=== PATIENT | male | born 1970 | race Two or more races ===

== ENCOUNTER 2024-06-19 10:56 | Outpatient (CLI) | payer OTHER | END 2024-06-19 11:10 | disposition home or self-care (01) | LOC: RAD 10:56 | PROVIDERS: ATTEND Orthopaedic Surgery Adult Reconstructive Orthopaedic Surgery | DX: I11.9 Hypertensive heart disease without heart failure (principal) ==

== ENCOUNTER 2025-04-22 09:06 | Emergency (ER) | payer OTHER ==
[~2025-04-22] VITALS: Ht 177.8 cm; Wt 79.8 kg
[2025-04-22] MEDS ORDERED: ACID REDUCER20 M1 (10:05)
[2025-04-22] MEDS ORDERED: ATACAND32 MG (10:05)
[2025-04-22] MEDS ORDERED: TERAZOSIN HCL5 MG PO (10:05)
[2025-04-22] MEDS ORDERED: PEPCID AC20 MG (10:06)
[2025-04-22] MEDS ORDERED: SYMBICORT 16010.2 GM (10:06)
[2025-04-22] MEDS ORDERED: REPATHA SU140 MG/1 M (10:06)
[2025-04-22] MEDS ORDERED: BUTALB/ACETAMINOPHEN/CAFFEINE 1 TAB TABLET PO ONE (10:30)
[2025-04-22] MEDS ORDERED: ONDANSETRON 4 MG TAB.RAPDIS PO ONE (10:30)
[2025-04-22] MEDS ORDERED: BUTALBIT-ACETA1 EACH PO (11:11)
[2025-04-22] MEDS ORDERED: ZOFRAN8 MG PO (11:11)
== END 2025-04-22 11:16 | disposition home or self-care (01) ==
LOC: ER 09:06
DX: R51.9 Headache, unspecified (principal); R11.10 Vomiting, unspecified; J45.909 Unspecified asthma, uncomplicated; E78.00 Pure hypercholesterolemia, unspecified; I10 Essential (primary) hypertension

== ENCOUNTER → 2025-06-30 10:56 | Outpatient (CLI) | payer OTHER ==
[~2025-06-30 10:56] MED LIST: ACID REDUCER20 M1; ATACAND32 MG; BUTALBIT-ACETA1 EACH PO; PEPCID AC20 MG; REPATHA SU140 MG/1 M; SYMBICORT 16010.2 GM; TERAZOSIN HCL5 MG PO; ZOFRAN8 MG PO
== END | disposition home or self-care (01) ==
LOC: NUCLEAR 09:30
DX: M81.0 Age-related osteoporosis without current pathological fracture (principal)